=== PATIENT | male | born 1985 | race African-American/Black ===

== ENCOUNTER 2020-07-12 10:30 | Inpatient (IN) | payer OTHER ==
[~2020-07-12] VITALS: Ht 180.3 cm; Wt 117.4 kg
[2020-07-12 11:26] LABS: Eosinophils # (auto) 0 10 ^3/uL (0-0.8); Eosinophils % (auto) 0.3 % (0.0-7.0); Hemoglobin 13.5 g/dL (13.5-17.5); Lymphocytes # (auto) 0.7 10 ^3/uL (0.4-5.4); White Blood Cell 9.5 10^3/uL (4.4-10.8)
[2020-07-12 11:28] LABS: Basophils # (auto) 0 10 ^3/uL (0-0.2); Basophils % (auto) 0.4 % (0.0-2.0); Hematocrit 41.7 % (41.0-53.0); Lymphocytes % (auto) 7.2 % (10.0-50.0); Mean Corpuscular Hemoglobin 23.6 pg (28.0-32.0); Mean Corpuscular Hgb Conc. 32.3 g/dL (32.0-36.0); Mean Corpuscular Volume 73.1 fL (80.0-100.0); Monocytes # (auto) 0.8 10 ^3/uL (0-1.3); Monocytes % (auto) 8.9 % (0.0-12.0); Neutrophils # (auto) 7.9 10 ^3/uL (1.6-8.6); Neutrophils % (auto) 83.2 % (37.0-80.0); Nucleated Red Blood Cells % 0.1 %; Red Cell Distribution Width 15.8 % (11.8-14.3)
[2020-07-12 11:42] LABS: INR 1.42 (0.9-1.15); Partial Thromboplastin Time 30.4 sec (23.0-31.2)
[2020-07-12 11:45] LABS: Albumin 2.2 g/dL (3.4-5.0); BUN/Creatinine Ratio 20.3; Calcium 8.5 mg/dL (8.5-10.1); Potassium 4.7 mmol/L (3.5-5.1)
[2020-07-12 11:55] LABS: Bilirubin, Total 3.1 mg/dL (0.2-1.0); Total Protein 6.8 g/dL (6.4-8.2)
[2020-07-12] MEDS ORDERED: FUROSEMIDE 40 MG/4 ML VIAL IV ONE (12:30)
[2020-07-12] MEDS ORDERED: ENOXAPARIN SOD 100 MG/1 ML SYRINGE SC ONE (12:30)
[2020-07-12] MEDS ORDERED: IOHEXOL 350 MG/ML 100ML IJ ONE (13:01)
[2020-07-12] MEDS ORDERED: NITROGLYCERIN 0.4 MG SL TAB SL PRN (13:15)
[2020-07-12] MEDS ORDERED: PANTOPRAZOLE 40 MG TAB PO ONE (13:15)
[2020-07-12] MEDS ORDERED: cefTRIAXone 1GM/50ML D5W 50 ML IV ONE (14:00)
[2020-07-12] MEDS ORDERED: AZITHROMYCIN 250 MG TAB PO ONE (14:00)
[2020-07-12] MEDS ORDERED: POTASSIUM CHL 10 Meq TABLET PO ONE (14:00)
[2020-07-12] MEDS ORDERED: APIXABAN 5 MG TAB PO ONE (14:00)
[2020-07-12] MEDS ORDERED: FUROSEMIDE 20 MG/2 ML VIAL IV ONE (14:00)
[2020-07-12 15:50] LABS: Hepatitis A Ab IgM Negative; Hepatitis B Surface Antigen Negative (Negative); Hepatitis C Antibody Negative (Negative)
[2020-07-12 15:51] LABS: Hepatitis B Core IgM Negative
[2020-07-12] MEDS: POTASSIUM CHL 10 Meq TABLET PO SCH (21:30)
[2020-07-12] MEDS: APIXABAN 5 MG TAB PO SCH (21:30)
[2020-07-12] MEDS: FUROSEMIDE 20 MG/2 ML VIAL IV SCH (21:30)
[2020-07-12] MEDS ORDERED: ACETAMINOPHEN 500 MG TAB PO ONE (22:30)
[2020-07-12] MEDS: HYDROcodone-ACET 10/325MG TAB PO PRN (22:34)
[2020-07-13] MEDS: HYDROcodone-ACET 10/325MG TAB PO PRN ×2 (07:11→16:57)
[2020-07-13] MEDS ORDERED: REMDESIVIR 200 MG in NS 210ml LOADING DOSE ADULT IV ONE (08:00)
[2020-07-13 08:16] LABS: Calcium 8.8 mg/dL (8.5-10.1); Potassium 4.7 mmol/L (3.5-5.1)
[2020-07-13 08:21] LABS: BUN/Creatinine Ratio 18.3
[2020-07-13] MEDS ORDERED: REMDESIVIR PER PHARMACY IV SCH (10:00)
[2020-07-13] MEDS: CHOLECALCIFEROL (VITD3) 2,000 UNIT CAP/TAB PO SCH (10:20)
[2020-07-13] MEDS: ZINC SULFATE 220mg CAP or TAB PO SCH (10:20)
[2020-07-13] MEDS: APIXABAN 5 MG TAB PO SCH ×2 (10:20→22:07)
[2020-07-13] MEDS: cefTRIAXone 1GM/50ML D5W 50 ML IV SCH (10:20)
[2020-07-13] MEDS: POTASSIUM CHL 10 Meq TABLET PO SCH ×2 (10:20→22:07)
[2020-07-13] MEDS: ASCORBIC ACID 500 MG TAB PO SCH ×2 (10:20→22:07)
[2020-07-13] MEDS: FUROSEMIDE 20 MG/2 ML VIAL IV SCH (10:23)
[2020-07-13] MEDS: AZITHROMYCIN 250 MG TAB PO SCH (12:08)
[2020-07-13] MEDS ORDERED: OPTISON 3ml Vial for INJ IV ONE (13:15)
[2020-07-13] MEDS ORDERED: APIXABAN 5 MG TAB PO SCH (22:00)
[2020-07-13 23:00] VITALS: BP 134/95
[2020-07-14 05:00] VITALS: BP 118/89
[2020-07-14] MEDS ORDERED: PNEUMOCOCCAL VACC POLYS 25 MCG/0.5 ML VIAL SUBCUT ONE (05:45)
[2020-07-14 06:43] LABS: Basophils # (auto) 0 10 ^3/uL (0-0.2); Eosinophils # (auto) 0 10 ^3/uL (0-0.8); Hemoglobin 12.1 g/dL (13.5-17.5)
[2020-07-14 06:45] LABS: Basophils % (auto) 0.3 % (0.0-2.0); Lymphocytes # (auto) 1.1 10 ^3/uL (0.4-5.4); Lymphocytes % (auto) 9.4 % (10.0-50.0); Mean Corpuscular Hemoglobin 23.1 pg (28.0-32.0); Mean Corpuscular Hgb Conc. 31.7 g/dL (32.0-36.0); Mean Corpuscular Volume 72.7 fL (80.0-100.0); Monocytes # (auto) 1.5 10 ^3/uL (0-1.3); Monocytes % (auto) 12.9 % (0.0-12.0); Neutrophils # (auto) 8.8 10 ^3/uL (1.6-8.6); Neutrophils % (auto) 77.4 % (37.0-80.0); Nucleated Red Blood Cells % 0.5 %; Red Blood Cells 5.23 10^6/uL (4.5-5.90); Red Cell Distribution Width 15.8 % (11.8-14.3); White Blood Cell 11.3 10^3/uL (4.4-10.8)
[2020-07-14 07:06] LABS: Calcium 8.6 mg/dL (8.5-10.1); Potassium 5.1 mmol/L (3.5-5.1)
[2020-07-14 07:10] LABS: BUN/Creatinine Ratio 18.8; Bilirubin, Total 3.9 mg/dL (0.2-1.0); Total Protein 6.8 g/dL (6.4-8.2)
[2020-07-14 09:00] VITALS: BP 124/90
[2020-07-14] MEDS ORDERED: REMDESIVIR PER PHARMACY IV SCH (10:00)
[2020-07-14] MEDS: ZINC SULFATE 220mg CAP or TAB PO SCH (10:10)
[2020-07-14] MEDS: CHOLECALCIFEROL (VITD3) 2,000 UNIT CAP/TAB PO SCH (10:10)
[2020-07-14] MEDS: APIXABAN 5 MG TAB PO SCH ×2 (10:10→21:30)
[2020-07-14] MEDS: AZITHROMYCIN 250 MG TAB PO SCH (10:10)
[2020-07-14] MEDS: ASCORBIC ACID 500 MG TAB PO SCH ×2 (10:11→21:30)
[2020-07-14] MEDS: cefTRIAXone 1GM/50ML D5W 50 ML IV SCH (10:14)
[2020-07-14] MEDS: PANTOPRAZOLE 40 MG TAB PO SCH (10:15)
[2020-07-14] MEDS: POTASSIUM CHL 10 Meq TABLET PO SCH ×2 (10:15→21:28)
[2020-07-14] MEDS: FUROSEMIDE 20 MG/2 ML VIAL IV SCH (10:18)
[2020-07-14] MEDS: HYDROcodone-ACET 10/325MG TAB PO PRN ×2 (10:37→21:32)
[2020-07-14 12:48] VITALS: BP 125/87
[2020-07-14 17:00] VITALS: BP 110/74
[2020-07-14] MEDS ORDERED: REMDESIVIR 100 MG in SODIUM CHL 0.9% 250 ML IV SCH (17:00)
[2020-07-14 22:32] VITALS: BP 145/94
[2020-07-15 03:56] LABS: Urine Bacteria FEW /hpf (None Seen); Urine Blood 3+ /uL (Negative); Urine Hyaline Cast MANY /lpf (0 - 2); Urine Mucus FEW (None Seen); Urine Specific Gravity 1.024 (1.001-1.035); Urine Sperm PRESENT /hpf (None Seen); Urine WBC 4 /hpf (0 - 3)
[2020-07-15 06:06] VITALS: BP 103/82
[2020-07-15 09:00] VITALS: BP 119/83
[2020-07-15] MEDS: ZINC SULFATE 220mg CAP or TAB PO SCH (11:16)
[2020-07-15] MEDS: LISINOPRIL 5 MG TAB PO SCH (11:17)
[2020-07-15] MEDS: POTASSIUM CHL 10 Meq TABLET PO SCH ×2 (11:18→22:00)
[2020-07-15] MEDS: PANTOPRAZOLE 40 MG TAB PO SCH (11:18)
[2020-07-15] MEDS: APIXABAN 5 MG TAB PO SCH ×2 (11:18→21:46)
[2020-07-15 11:19] LABS: Potassium 5.5 mmol/L (3.5-5.1)
[2020-07-15] MEDS: CARVEDILOL 3.125 MG TAB PO SCH (11:19)
[2020-07-15] MEDS: ASCORBIC ACID 500 MG TAB PO SCH ×2 (11:19→21:46)
[2020-07-15] MEDS: AZITHROMYCIN 250 MG TAB PO SCH (11:20)
[2020-07-15] MEDS: HYDROcodone-ACET 10/325MG TAB PO PRN ×2 (11:20→21:45)
[2020-07-15] MEDS: CHOLECALCIFEROL (VITD3) 2,000 UNIT CAP/TAB PO SCH (11:20)
[2020-07-15] MEDS: cefTRIAXone 1GM/50ML D5W 50 ML IV SCH (11:21)
[2020-07-15] MEDS: FUROSEMIDE 20 MG/2 ML VIAL IV SCH (11:21)
[2020-07-15 11:25] LABS: Albumin 1.9 g/dL (3.4-5.0); Bilirubin, Total 3.9 mg/dL (0.2-1.0); Total Protein 6.3 g/dL (6.4-8.2)
[2020-07-15 13:00] VITALS: BP 109/78
[2020-07-15 16:34] VITALS: BP 97/73
[2020-07-15 20:57] VITALS: BP 107/62
[2020-07-16 05:00] VITALS: BP 100/71
[2020-07-16 08:00] VITALS: BP 115/76
[2020-07-16 08:01] LABS: Potassium 4.7 mmol/L (3.5-5.1)
[2020-07-16 08:11] LABS: Albumin 1.8 g/dL (3.4-5.0); BUN/Creatinine Ratio 30.6; Bilirubin, Total 3.6 mg/dL (0.2-1.0); Calcium 7.9 mg/dL (8.5-10.1); Total Protein 6.4 g/dL (6.4-8.2)
[2020-07-16] MEDS: LISINOPRIL 5 MG TAB PO SCH (10:00)
[2020-07-16] MEDS: APIXABAN 5 MG TAB PO SCH ×2 (10:24→21:51)
[2020-07-16] MEDS: ZINC SULFATE 220mg CAP or TAB PO SCH (10:24)
[2020-07-16] MEDS: cefTRIAXone 1GM/50ML D5W 50 ML IV SCH (10:24)
[2020-07-16] MEDS: AZITHROMYCIN 250 MG TAB PO SCH (10:25)
[2020-07-16] MEDS: ASCORBIC ACID 500 MG TAB PO SCH ×2 (10:25→21:51)
[2020-07-16] MEDS: PANTOPRAZOLE 40 MG TAB PO SCH (10:25)
[2020-07-16] MEDS: CHOLECALCIFEROL (VITD3) 2,000 UNIT CAP/TAB PO SCH (10:25)
[2020-07-16] MEDS: FUROSEMIDE 20 MG/2 ML VIAL IV SCH (10:50)
[2020-07-16] MEDS: POTASSIUM CHL 10 Meq TABLET PO SCH ×2 (10:50→21:51)
[2020-07-16] MEDS: CARVEDILOL 3.125 MG TAB PO SCH (10:51)
[2020-07-16 12:00] VITALS: BP 105/63
[2020-07-16] MEDS: HYDROcodone-ACET 10/325MG TAB PO PRN ×2 (13:15→19:38)
[2020-07-16 17:00] VITALS: BP 108/76
[2020-07-16 22:29] VITALS: BP 123/51
[2020-07-17] MEDS: HYDROcodone-ACET 10/325MG TAB PO PRN ×3 (00:16→20:19)
[2020-07-17 05:23] VITALS: BP 102/75
[2020-07-17 08:15] LABS: Potassium 5.3 mmol/L (3.5-5.1)
[2020-07-17 08:22] LABS: Albumin 1.9 g/dL (3.4-5.0); BUN/Creatinine Ratio 28.9; Bilirubin, Total 3.8 mg/dL (0.2-1.0); Calcium 8.3 mg/dL (8.5-10.1); Total Protein 6.8 g/dL (6.4-8.2)
[2020-07-17 09:00] VITALS: BP 123/67
[2020-07-17] MEDS: ZINC SULFATE 220mg CAP or TAB PO SCH (09:27)
[2020-07-17] MEDS: AZITHROMYCIN 250 MG TAB PO SCH (09:28)
[2020-07-17] MEDS: APIXABAN 5 MG TAB PO SCH ×2 (09:28→21:43)
[2020-07-17] MEDS: ASCORBIC ACID 500 MG TAB PO SCH ×2 (09:28→21:42)
[2020-07-17] MEDS: PANTOPRAZOLE 40 MG TAB PO SCH (09:29)
[2020-07-17] MEDS: CHOLECALCIFEROL (VITD3) 2,000 UNIT CAP/TAB PO SCH (09:29)
[2020-07-17] MEDS: cefTRIAXone 1GM/50ML D5W 50 ML IV SCH (09:31)
[2020-07-17] MEDS: LISINOPRIL 5 MG TAB PO SCH (09:33)
[2020-07-17] MEDS: FUROSEMIDE 20 MG/2 ML VIAL IV SCH (09:34)
[2020-07-17] MEDS: CARVEDILOL 3.125 MG TAB PO SCH (09:34)
[2020-07-17] MEDS: POTASSIUM CHL 10 Meq TABLET PO SCH (09:35)
[2020-07-17 13:00] VITALS: BP 119/71
[2020-07-17 17:00] VITALS: BP 113/76
[2020-07-17 22:00] VITALS: BP 99/72
[2020-07-18] MEDS: HYDROcodone-ACET 10/325MG TAB PO PRN ×5 (03:29→21:13)
[2020-07-18 05:00] VITALS: BP 100/59
[2020-07-18 08:51] LABS: BUN/Creatinine Ratio 32.4; Calcium 8.2 mg/dL (8.5-10.1); Potassium 5.4 mmol/L (3.5-5.1)
[2020-07-18 09:00] VITALS: BP 107/81
[2020-07-18] MEDS: ASCORBIC ACID 500 MG TAB PO SCH ×2 (10:09→21:13)
[2020-07-18] MEDS: CARVEDILOL 3.125 MG TAB PO SCH (10:09)
[2020-07-18] MEDS: LISINOPRIL 5 MG TAB PO SCH (10:11)
[2020-07-18] MEDS: PANTOPRAZOLE 40 MG TAB PO SCH (10:12)
[2020-07-18] MEDS: APIXABAN 5 MG TAB PO SCH ×2 (10:12→21:13)
[2020-07-18] MEDS: CHOLECALCIFEROL (VITD3) 2,000 UNIT CAP/TAB PO SCH (10:13)
[2020-07-18] MEDS: ZINC SULFATE 220mg CAP or TAB PO SCH (10:13)
[2020-07-18] MEDS: AZITHROMYCIN 250 MG TAB PO SCH (10:13)
[2020-07-18] MEDS: cefTRIAXone 1GM/50ML D5W 50 ML IV SCH (10:13)
[2020-07-18] MEDS: FUROSEMIDE 20 MG/2 ML VIAL IV SCH (10:14)
[2020-07-18 12:25] LABS: Albumin 1.8 g/dL (3.4-5.0)
[2020-07-18 12:31] LABS: Bilirubin, Direct 2.8 mg/dL (0-0.2); Bilirubin, Total 3.3 mg/dL (0.2-1.0); Total Protein 6.6 g/dL (6.4-8.2)
[2020-07-18 13:00] VITALS: BP 100/68
[2020-07-18] MEDS ORDERED: SODIUM ZIRCONIUM CYCL 10 GM PAK PO ONE (16:45)
[2020-07-18 17:00] VITALS: BP 93/63
[2020-07-18 22:00] VITALS: BP 123/50
[2020-07-19 05:00] VITALS: BP 115/67
[2020-07-19] MEDS: HYDROcodone-ACET 10/325MG TAB PO PRN ×2 (05:41→22:14)
[2020-07-19 07:41] LABS: Potassium 4.9 mmol/L (3.5-5.1)
[2020-07-19 07:51] LABS: BUN/Creatinine Ratio 37.1; Calcium 7.9 mg/dL (8.5-10.1)
[2020-07-19 08:00] VITALS: BP 108/76
[2020-07-19] MEDS ORDERED: SODIUM ZIRCONIUM CYCL 10 GM PAK PO ONE (10:00)
[2020-07-19] MEDS ORDERED: APIXABAN 5 MG TAB PO SCH (10:00)
[2020-07-19] MEDS: ASCORBIC ACID 500 MG TAB PO SCH ×2 (10:00→22:15)
[2020-07-19 12:00] VITALS: BP 104/64
[2020-07-19] MEDS: ZINC SULFATE 220mg CAP or TAB PO SCH (15:59)
[2020-07-19] MEDS: cefTRIAXone 1GM/50ML D5W 50 ML IV SCH (15:59)
[2020-07-19] MEDS: FUROSEMIDE 20 MG/2 ML VIAL IV SCH (15:59)
[2020-07-19] MEDS: APIXABAN 5 MG TAB PO SCH ×2 (16:00→22:15)
[2020-07-19] MEDS: CARVEDILOL 3.125 MG TAB PO SCH (16:00)
[2020-07-19] MEDS: CHOLECALCIFEROL (VITD3) 2,000 UNIT CAP/TAB PO SCH (16:01)
[2020-07-19] MEDS: PANTOPRAZOLE 40 MG TAB PO SCH (16:01)
[2020-07-19] MEDS: AZITHROMYCIN 250 MG TAB PO SCH (16:01)
[2020-07-19 17:00] VITALS: BP 108/63
[2020-07-19 22:01] VITALS: BP 98/73
[2020-07-20] MEDS: HYDROcodone-ACET 10/325MG TAB PO PRN ×2 (04:16→19:00)
[2020-07-20 05:00] VITALS: BP 104/70
[2020-07-20] MEDS ORDERED: MIDAZOLAM HCL 2MG/2ML 2ml VIAL (1mg/ml) ONE (07:33)
[2020-07-20] MEDS ORDERED: oxyTOCIN 10 UNIT/ML 10ML VIAL ONE (07:33)
[2020-07-20] MEDS ORDERED: MORPHINE SULF PF 2 MG/2 ML SYRG ONE (07:33)
[2020-07-20] MEDS ORDERED: SODIUM CHLORIDE LOCK 10 ML ONE (07:33)
[2020-07-20] MEDS ORDERED: EPINEPHrine HCL 1 MG/1 ML AMP ONE (07:33)
[2020-07-20] MEDS ORDERED: BUPIVACAINE/DEXTROSE MPF 0.75% 2 ML AMP IT ONE (07:33)
[2020-07-20] MEDS ORDERED: ONDANSETRON HCL 4 MG/2 ML VIAL ONE (07:33)
[2020-07-20] MEDS ORDERED: fentaNYL CITRATE 100 MCG/2 ML VL ONE (07:33)
[2020-07-20 08:00] VITALS: BP 101/62
[2020-07-20 09:06] LABS: Albumin 1.8 g/dL (3.4-5.0); Calcium 7.8 mg/dL (8.5-10.1); Potassium 4.7 mmol/L (3.5-5.1)
[2020-07-20 09:09] LABS: Bilirubin, Total 2.6 mg/dL (0.2-1.0)
[2020-07-20] MEDS: cefTRIAXone 1GM/50ML D5W 50 ML IV SCH (12:15)
[2020-07-20] MEDS: PANTOPRAZOLE 40 MG TAB PO SCH (12:15)
[2020-07-20] MEDS: ZINC SULFATE 220mg CAP or TAB PO SCH (12:15)
[2020-07-20] MEDS: AZITHROMYCIN 250 MG TAB PO SCH (12:15)
[2020-07-20] MEDS: CARVEDILOL 3.125 MG TAB PO SCH (12:15)
[2020-07-20] MEDS: FUROSEMIDE 20 MG/2 ML VIAL IV SCH (12:15)
[2020-07-20] MEDS: APIXABAN 5 MG TAB PO SCH ×2 (12:15→22:22)
[2020-07-20] MEDS: ASCORBIC ACID 500 MG TAB PO SCH ×2 (12:15→22:22)
[2020-07-20] MEDS: CHOLECALCIFEROL (VITD3) 2,000 UNIT CAP/TAB PO SCH (12:15)
[2020-07-20 14:05] VITALS: BP 116/69
[2020-07-20] MEDS ORDERED: REMDESIVIR 100 MG in SODIUM CHL 0.9% 250 ML IV SCH (15:00)
[2020-07-20 17:00] VITALS: BP 94/67
[2020-07-20 22:00] VITALS: BP 101/67
[2020-07-21] MEDS: HYDROcodone-ACET 10/325MG TAB PO PRN ×2 (01:26→12:59)
[2020-07-21 05:00] VITALS: BP 93/54
[2020-07-21 07:11] LABS: Albumin 1.8 g/dL (3.4-5.0); BUN/Creatinine Ratio 34.2; Bilirubin, Total 2.9 mg/dL (0.2-1.0); Calcium 8.2 mg/dL (8.5-10.1); Total Protein 6.4 g/dL (6.4-8.2)
[2020-07-21] MEDS: AZITHROMYCIN 250 MG TAB PO SCH (10:50)
[2020-07-21] MEDS: PANTOPRAZOLE 40 MG TAB PO SCH (10:50)
[2020-07-21] MEDS: CARVEDILOL 3.125 MG TAB PO SCH (10:50)
[2020-07-21] MEDS: ASCORBIC ACID 500 MG TAB PO SCH ×2 (10:50→21:17)
[2020-07-21] MEDS: FUROSEMIDE 20 MG/2 ML VIAL IV SCH (10:50)
[2020-07-21] MEDS: APIXABAN 5 MG TAB PO SCH ×2 (10:50→21:18)
[2020-07-21] MEDS: CHOLECALCIFEROL (VITD3) 2,000 UNIT CAP/TAB PO SCH (10:50)
[2020-07-21] MEDS: cefTRIAXone 1GM/50ML D5W 50 ML IV SCH (10:50)
[2020-07-21] MEDS: ZINC SULFATE 220mg CAP or TAB PO SCH (10:50)
[2020-07-21 13:00] VITALS: BP 108/68
[2020-07-21 17:00] VITALS: BP 103/63
[2020-07-21 21:00] VITALS: BP 116/68
[2020-07-22 00:30] VITALS: BP 102/72
[2020-07-22] MEDS: HYDROcodone-ACET 10/325MG TAB PO PRN ×4 (00:45→22:52)
[2020-07-22 05:00] VITALS: BP 97/71
[2020-07-22 09:00] VITALS: BP 114/66
[2020-07-22] MEDS: APIXABAN 5 MG TAB PO SCH ×2 (10:00→21:17)
[2020-07-22] MEDS: CHOLECALCIFEROL (VITD3) 2,000 UNIT CAP/TAB PO SCH ×2 (10:51→11:05)
[2020-07-22] MEDS: cefTRIAXone 1GM/50ML D5W 50 ML IV SCH (11:04)
[2020-07-22] MEDS: ZINC SULFATE 220mg CAP or TAB PO SCH (11:04)
[2020-07-22] MEDS: PANTOPRAZOLE 40 MG TAB PO SCH (11:05)
[2020-07-22] MEDS: ASCORBIC ACID 500 MG TAB PO SCH ×2 (11:05→21:20)
[2020-07-22] MEDS: AZITHROMYCIN 250 MG TAB PO SCH (11:05)
[2020-07-22] MEDS: CARVEDILOL 3.125 MG TAB PO SCH (11:07)
[2020-07-22] MEDS: FUROSEMIDE 20 MG/2 ML VIAL IV SCH (11:08)
[2020-07-22 11:19] LABS: INR 1.9 (0.9-1.15); Partial Thromboplastin Time 44.5 sec (23.0-31.2)
[2020-07-22 12:44] VITALS: BP 148/75
[2020-07-22] MEDS ORDERED: HYDROmorphone HCL 2 MG/ML VL IV ONE (12:45)
[2020-07-22 17:00] VITALS: BP 101/75
[2020-07-22 22:00] VITALS: BP 101/74
[2020-07-23 00:15] VITALS: BP 105/70
[2020-07-23 05:00] VITALS: BP 101/75
[2020-07-23 06:39] LABS: Albumin 1.7 g/dL (3.4-5.0); Calcium 8.2 mg/dL (8.5-10.1); Potassium 4.8 mmol/L (3.5-5.1)
[2020-07-23 06:45] LABS: Total Protein 6.3 g/dL (6.4-8.2)
[2020-07-23 06:54] LABS: Basophils # (auto) 0.1 10 ^3/uL (0-0.2); Eosinophils # (auto) 0.1 10 ^3/uL (0-0.8); Monocytes # (auto) 0.7 10 ^3/uL (0-1.3)
[2020-07-23 06:56] LABS: Basophils % (auto) 0.7 % (0.0-2.0); Eosinophils % (auto) 0.9 % (0.0-7.0); Hemoglobin 11.7 g/dL (13.5-17.5); Lymphocytes # (auto) 1.2 10 ^3/uL (0.4-5.4); Lymphocytes % (auto) 14.3 % (10.0-50.0); Mean Corpuscular Hgb Conc. 32.4 g/dL (32.0-36.0); Mean Corpuscular Volume 70.9 fL (80.0-100.0); Monocytes % (auto) 8.4 % (0.0-12.0); Neutrophils # (auto) 6.3 10 ^3/uL (1.6-8.6); Neutrophils % (auto) 75.7 % (37.0-80.0); Nucleated Red Blood Cells % 2.3 %; Red Blood Cells 5.08 10^6/uL (4.5-5.90); White Blood Cell 8.3 10^3/uL (4.4-10.8)
[2020-07-23 09:00] VITALS: BP 107/75
[2020-07-23] MEDS: ASCORBIC ACID 500 MG TAB PO SCH ×2 (10:17→21:34)
[2020-07-23] MEDS: cefTRIAXone 1GM/50ML D5W 50 ML IV SCH (10:17)
[2020-07-23] MEDS: CHOLECALCIFEROL (VITD3) 2,000 UNIT CAP/TAB PO SCH (10:17)
[2020-07-23] MEDS: ZINC SULFATE 220mg CAP or TAB PO SCH (10:17)
[2020-07-23] MEDS: AZITHROMYCIN 250 MG TAB PO SCH (10:17)
[2020-07-23] MEDS: PANTOPRAZOLE 40 MG TAB PO SCH (10:17)
[2020-07-23] MEDS: CARVEDILOL 3.125 MG TAB PO SCH (10:18)
[2020-07-23] MEDS: FUROSEMIDE 20 MG/2 ML VIAL IV SCH (10:18)
[2020-07-23] MEDS: HYDROcodone-ACET 10/325MG TAB PO PRN (11:32)
[2020-07-23 13:00] VITALS: BP 108/77
[2020-07-23] MEDS: PROMETHAZINE W/CODEINE 5 ML ORAL SYRUP PO PRN (16:14)
[2020-07-23 17:00] VITALS: BP 103/56
[2020-07-23 20:00] VITALS: BP 100/72
[2020-07-24 07:20] LABS: Basophils # (auto) 0.1 10 ^3/uL (0-0.2)
[2020-07-24 07:23] LABS: Eosinophils # (auto) 0 10 ^3/uL (0-0.8); Eosinophils % (auto) 0.5 % (0.0-7.0); Hematocrit 35.6 % (41.0-53.0); Hemoglobin 11.3 g/dL (13.5-17.5); Lymphocytes # (auto) 1.2 10 ^3/uL (0.4-5.4); Lymphocytes % (auto) 13.3 % (10.0-50.0); Mean Corpuscular Hemoglobin 22.9 pg (28.0-32.0); Mean Corpuscular Hgb Conc. 31.7 g/dL (32.0-36.0); Mean Corpuscular Volume 72.1 fL (80.0-100.0); Monocytes # (auto) 0.8 10 ^3/uL (0-1.3); Monocytes % (auto) 8.7 % (0.0-12.0); Neutrophils # (auto) 7.1 10 ^3/uL (1.6-8.6); Neutrophils % (auto) 76.5 % (37.0-80.0); Nucleated Red Blood Cells % 0.9 %; Red Blood Cells 4.95 10^6/uL (4.5-5.90); White Blood Cell 9.3 10^3/uL (4.4-10.8)
[2020-07-24 08:04] LABS: INR 1.48 (0.9-1.15); Partial Thromboplastin Time 36.2 sec (23.0-31.2)
[2020-07-24 09:00] VITALS: BP 103/66
[2020-07-24] MEDS: cefTRIAXone 1GM/50ML D5W 50 ML IV SCH (09:55)
[2020-07-24] MEDS: FUROSEMIDE 20 MG/2 ML VIAL IV SCH (09:55)
[2020-07-24] MEDS: ZINC SULFATE 220mg CAP or TAB PO SCH (09:56)
[2020-07-24] MEDS: PANTOPRAZOLE 40 MG TAB PO SCH (09:56)
[2020-07-24] MEDS: AZITHROMYCIN 250 MG TAB PO SCH (09:56)
[2020-07-24] MEDS: ASCORBIC ACID 500 MG TAB PO SCH ×2 (09:56→21:29)
[2020-07-24] MEDS: CARVEDILOL 3.125 MG TAB PO SCH (09:56)
[2020-07-24] MEDS: CHOLECALCIFEROL (VITD3) 2,000 UNIT CAP/TAB PO SCH (09:57)
[2020-07-24 13:00] VITALS: BP 101/66
[2020-07-24] MEDS: PROMETHAZINE W/CODEINE 5 ML ORAL SYRUP PO PRN (13:21)
[2020-07-24] MEDS: HYDROcodone-ACET 10/325MG TAB PO PRN (13:21)
[2020-07-24 17:00] VITALS: BP 101/69
[2020-07-24 20:00] VITALS: BP 102/65
[2020-07-24 21:48] VITALS: BP 102/65
[2020-07-25 05:16] VITALS: BP 114/70
[2020-07-25] MEDS: FUROSEMIDE 20 MG/2 ML VIAL IV SCH (08:34)
[2020-07-25] MEDS: cefTRIAXone 1GM/50ML D5W 50 ML IV SCH (08:35)
[2020-07-25] MEDS: PANTOPRAZOLE 40 MG TAB PO SCH (08:35)
[2020-07-25] MEDS: ZINC SULFATE 220mg CAP or TAB PO SCH (08:35)
[2020-07-25] MEDS: CARVEDILOL 3.125 MG TAB PO SCH (08:35)
[2020-07-25] MEDS: AZITHROMYCIN 250 MG TAB PO SCH (08:36)
[2020-07-25] MEDS: ASCORBIC ACID 500 MG TAB PO SCH ×2 (08:36→21:06)
[2020-07-25] MEDS: HYDROcodone-ACET 10/325MG TAB PO PRN (08:36)
[2020-07-25] MEDS: CHOLECALCIFEROL (VITD3) 2,000 UNIT CAP/TAB PO SCH (08:36)
[2020-07-25 09:00] VITALS: BP 101/61
[2020-07-25] MEDS: PROMETHAZINE W/CODEINE 5 ML ORAL SYRUP PO PRN ×3 (09:17→22:39)
[2020-07-25 13:15] VITALS: BP 94/60
[2020-07-25 16:51] VITALS: BP 106/67
[2020-07-25 20:00] VITALS: BP 101/71
[2020-07-25 22:00] VITALS: BP 101/71
[2020-07-26] MEDS: HYDROcodone-ACET 10/325MG TAB PO PRN ×4 (00:23→21:59)
[2020-07-26 08:36] VITALS: BP 112/75
[2020-07-26] MEDS: FUROSEMIDE 20 MG/2 ML VIAL IV SCH (09:17)
[2020-07-26] MEDS: PANTOPRAZOLE 40 MG TAB PO SCH (09:17)
[2020-07-26] MEDS: cefTRIAXone 1GM/50ML D5W 50 ML IV SCH (09:17)
[2020-07-26] MEDS: CARVEDILOL 3.125 MG TAB PO SCH (09:17)
[2020-07-26] MEDS: ZINC SULFATE 220mg CAP or TAB PO SCH (09:17)
[2020-07-26] MEDS: CHOLECALCIFEROL (VITD3) 2,000 UNIT CAP/TAB PO SCH (09:18)
[2020-07-26] MEDS: ASCORBIC ACID 500 MG TAB PO SCH ×2 (09:18→21:58)
[2020-07-26] MEDS: AZITHROMYCIN 250 MG TAB PO SCH (09:18)
[2020-07-26 14:22] VITALS: BP 111/56
[2020-07-26 15:06] LABS: Eosinophils # (auto) 0.1 10 ^3/uL (0-0.8); Hemoglobin 11.2 g/dL (13.5-17.5); Lymphocytes # (auto) 0.9 10 ^3/uL (0.4-5.4); Neutrophils # (auto) 9.1 10 ^3/uL (1.6-8.6)
[2020-07-26 15:08] LABS: Basophils # (auto) 0.1 10 ^3/uL (0-0.2); Basophils % (auto) 0.6 % (0.0-2.0); Eosinophils % (auto) 0.4 % (0.0-7.0); Hematocrit 34.6 % (41.0-53.0); Mean Corpuscular Hemoglobin 23.6 pg (28.0-32.0); Mean Corpuscular Hgb Conc. 32.3 g/dL (32.0-36.0); Mean Corpuscular Volume 72.9 fL (80.0-100.0); Monocytes # (auto) 1.2 10 ^3/uL (0-1.3); Monocytes % (auto) 10.8 % (0.0-12.0); Neutrophils % (auto) 80.2 % (37.0-80.0); Nucleated Red Blood Cells % 0.6 %; Red Blood Cells 4.75 10^6/uL (4.5-5.90); Red Cell Distribution Width 16.5 % (11.8-14.3); White Blood Cell 11.4 10^3/uL (4.4-10.8)
[2020-07-26 15:19] LABS: INR 1.51 (0.9-1.15); Partial Thromboplastin Time 33.7 sec (23.0-31.2)
[2020-07-26 15:26] LABS: Albumin 1.5 g/dL (3.4-5.0); Calcium 7.8 mg/dL (8.5-10.1); Potassium 4.8 mmol/L (3.5-5.1)
[2020-07-26 15:31] LABS: BUN/Creatinine Ratio 26.8; Bilirubin, Total 2.6 mg/dL (0.2-1.0); Total Protein 6.3 g/dL (6.4-8.2)
[2020-07-26] MEDS ORDERED: HYDROmorphone HCL 2 MG/ML VL IV ONE (16:30)
[2020-07-26 16:50] VITALS: BP 101/63
[2020-07-26] MEDS: PROMETHAZINE W/CODEINE 5 ML ORAL SYRUP PO PRN ×2 (16:54→22:51)
[2020-07-26 22:00] VITALS: BP 98/76
[2020-07-27] MEDS: HYDROcodone-ACET 10/325MG TAB PO PRN ×2 (03:12→10:40)
[2020-07-27 05:00] VITALS: BP 105/74
[2020-07-27] MEDS: PROMETHAZINE W/CODEINE 5 ML ORAL SYRUP PO PRN ×3 (08:01→21:17)
[2020-07-27 09:00] VITALS: BP 106/73
[2020-07-27] MEDS: FUROSEMIDE 20 MG/2 ML VIAL IV SCH (10:27)
[2020-07-27] MEDS: ZINC SULFATE 220mg CAP or TAB PO SCH (10:27)
[2020-07-27] MEDS: cefTRIAXone 1GM/50ML D5W 50 ML IV SCH (10:27)
[2020-07-27] MEDS: PANTOPRAZOLE 40 MG TAB PO SCH (10:28)
[2020-07-27] MEDS: CHOLECALCIFEROL (VITD3) 2,000 UNIT CAP/TAB PO SCH (10:28)
[2020-07-27] MEDS: AZITHROMYCIN 250 MG TAB PO SCH (10:28)
[2020-07-27] MEDS: ASCORBIC ACID 500 MG TAB PO SCH ×2 (10:28→21:17)
[2020-07-27] MEDS: CARVEDILOL 3.125 MG TAB PO SCH (10:28)
[2020-07-27 13:00] VITALS: BP 102/51
[2020-07-27 17:00] VITALS: BP 102/51
[2020-07-27] MEDS ORDERED: REMDESIVIR 200 MG in NS 210ml LOADING DOSE ADULT IV ONE (18:00)
[2020-07-27] MEDS: APIXABAN 5 MG TAB PO SCH (21:17)
[2020-07-27 21:56] VITALS: BP 107/66
[2020-07-28] MEDS: PROMETHAZINE W/CODEINE 5 ML ORAL SYRUP PO PRN ×3 (04:33→22:44)
[2020-07-28 05:28] VITALS: BP 112/62
[2020-07-28 09:00] VITALS: BP 101/63
[2020-07-28] MEDS: cefTRIAXone 1GM/50ML D5W 50 ML IV SCH (10:12)
[2020-07-28] MEDS: CARVEDILOL 3.125 MG TAB PO SCH (10:12)
[2020-07-28] MEDS: FUROSEMIDE 20 MG/2 ML VIAL IV SCH (10:12)
[2020-07-28] MEDS: PANTOPRAZOLE 40 MG TAB PO SCH (10:13)
[2020-07-28] MEDS: APIXABAN 5 MG TAB PO SCH ×2 (10:13→21:45)
[2020-07-28] MEDS: ASCORBIC ACID 500 MG TAB PO SCH ×2 (10:13→21:45)
[2020-07-28] MEDS: CHOLECALCIFEROL (VITD3) 2,000 UNIT CAP/TAB PO SCH (10:15)
[2020-07-28] MEDS: ZINC SULFATE 220mg CAP or TAB PO SCH (10:16)
[2020-07-28] MEDS: AZITHROMYCIN 250 MG TAB PO SCH (10:16)
[2020-07-28 10:34] LABS: Albumin 1.4 g/dL (3.4-5.0); Calcium 8.2 mg/dL (8.5-10.1); Potassium 4.6 mmol/L (3.5-5.1)
[2020-07-28 10:37] LABS: BUN/Creatinine Ratio 27.6; Bilirubin, Total 2.6 mg/dL (0.2-1.0); Total Protein 5.9 g/dL (6.4-8.2)
[2020-07-28 13:00] VITALS: BP 100/65
[2020-07-28] MEDS: REMDESIVIR 100 MG in SODIUM CHL 0.9% 250 ML IV SCH (16:00)
[2020-07-28 17:00] VITALS: BP 99/68
[2020-07-28 21:00] VITALS: BP_SYST 104; BP_SYST 113; BP_DIAS 70; BP_DIAS 74
[2020-07-29 07:47] LABS: Albumin 1.6 g/dL (3.4-5.0); Calcium 8.4 mg/dL (8.5-10.1); Potassium 4.3 mmol/L (3.5-5.1)
[2020-07-29 07:51] LABS: BUN/Creatinine Ratio 27.4; Bilirubin, Total 2.6 mg/dL (0.2-1.0); Total Protein 6.7 g/dL (6.4-8.2)
[2020-07-29 08:00] VITALS: BP 104/67
[2020-07-29] MEDS: ASCORBIC ACID 500 MG TAB PO SCH ×2 (10:00→22:36)
[2020-07-29] MEDS: cefTRIAXone 1GM/50ML D5W 50 ML IV SCH (10:00)
[2020-07-29] MEDS: ZINC SULFATE 220mg CAP or TAB PO SCH (10:00)
[2020-07-29] MEDS: CARVEDILOL 3.125 MG TAB PO SCH (10:00)
[2020-07-29] MEDS: APIXABAN 5 MG TAB PO SCH ×2 (10:00→22:36)
[2020-07-29] MEDS: PANTOPRAZOLE 40 MG TAB PO SCH (10:00)
[2020-07-29] MEDS: AZITHROMYCIN 250 MG TAB PO SCH (10:00)
[2020-07-29] MEDS: FUROSEMIDE 20 MG/2 ML VIAL IV SCH (10:00)
[2020-07-29] MEDS: CHOLECALCIFEROL (VITD3) 2,000 UNIT CAP/TAB PO SCH (10:00)
[2020-07-29 16:00] VITALS: BP 117/79
[2020-07-29] MEDS: REMDESIVIR 100 MG in SODIUM CHL 0.9% 250 ML IV SCH (16:34)
[2020-07-29 20:00] VITALS: BP 104/67
[2020-07-29] MEDS: PROMETHAZINE W/CODEINE 5 ML ORAL SYRUP PO PRN (23:06)
[2020-07-30 07:10] LABS: Potassium 3.7 mmol/L (3.5-5.1)
[2020-07-30 07:38] LABS: Albumin 1.3 g/dL (3.4-5.0); BUN/Creatinine Ratio 28.1; Bilirubin, Total 1.7 mg/dL (0.2-1.0); Calcium 7.3 mg/dL (8.5-10.1); Total Protein 5.6 g/dL (6.4-8.2)
[2020-07-30 08:00] VITALS: BP 122/72
[2020-07-30] MEDS: PROMETHAZINE W/CODEINE 5 ML ORAL SYRUP PO PRN ×3 (08:50→23:07)
[2020-07-30] MEDS: FUROSEMIDE 20 MG/2 ML VIAL IV SCH (09:37)
[2020-07-30] MEDS: cefTRIAXone 1GM/50ML D5W 50 ML IV SCH (09:38)
[2020-07-30] MEDS: ZINC SULFATE 220mg CAP or TAB PO SCH (09:39)
[2020-07-30] MEDS: ASCORBIC ACID 500 MG TAB PO SCH ×2 (09:41→21:32)
[2020-07-30] MEDS: APIXABAN 5 MG TAB PO SCH ×2 (09:42→21:32)
[2020-07-30] MEDS: AZITHROMYCIN 250 MG TAB PO SCH (09:42)
[2020-07-30] MEDS: CHOLECALCIFEROL (VITD3) 2,000 UNIT CAP/TAB PO SCH (09:42)
[2020-07-30] MEDS: PANTOPRAZOLE 40 MG TAB PO SCH (09:42)
[2020-07-30] MEDS: CARVEDILOL 3.125 MG TAB PO SCH ×2 (09:59→16:30)
[2020-07-30] MEDS: REMDESIVIR 100 MG in SODIUM CHL 0.9% 250 ML IV SCH (16:01)
[2020-07-30 18:12] VITALS: BP 103/67
[2020-07-30 22:00] VITALS: BP 99/74
[2020-07-31] MEDS: PROMETHAZINE W/CODEINE 5 ML ORAL SYRUP PO PRN ×3 (05:15→20:35)
[2020-07-31 08:00] VITALS: BP 109/84
[2020-07-31 08:47] LABS: Albumin 1.4 g/dL (3.4-5.0); Calcium 8.1 mg/dL (8.5-10.1)
[2020-07-31 08:50] LABS: BUN/Creatinine Ratio 27.3; Bilirubin, Total 2.2 mg/dL (0.2-1.0); Total Protein 6.1 g/dL (6.4-8.2)
[2020-07-31] MEDS: ASCORBIC ACID 500 MG TAB PO SCH ×2 (09:50→21:54)
[2020-07-31] MEDS: APIXABAN 5 MG TAB PO SCH ×2 (09:50→21:53)
[2020-07-31] MEDS: CHOLECALCIFEROL (VITD3) 2,000 UNIT CAP/TAB PO SCH (09:50)
[2020-07-31] MEDS: PANTOPRAZOLE 40 MG TAB PO SCH (09:50)
[2020-07-31] MEDS: AZITHROMYCIN 250 MG TAB PO SCH (09:51)
[2020-07-31] MEDS: ZINC SULFATE 220mg CAP or TAB PO SCH (09:51)
[2020-07-31] MEDS: CARVEDILOL 3.125 MG TAB PO SCH (09:53)
[2020-07-31] MEDS: FUROSEMIDE 20 MG/2 ML VIAL IV SCH (09:53)
[2020-07-31] MEDS: cefTRIAXone 1GM/50ML D5W 50 ML IV SCH (09:56)
[2020-07-31 16:14] VITALS: BP 96/64
[2020-07-31] MEDS: REMDESIVIR 100 MG in SODIUM CHL 0.9% 250 ML IV SCH (16:52)
[2020-07-31] MEDS: HYDROcodone-ACET 10/325MG TAB PO PRN (20:35)
[2020-08-01 00:21] VITALS: BP 112/70
[2020-08-01] MEDS: PROMETHAZINE W/CODEINE 5 ML ORAL SYRUP PO PRN ×3 (02:11→21:51)
[2020-08-01 07:25] LABS: Basophils # (auto) 0.1 10 ^3/uL (0-0.2); Lymphocytes # (auto) 1.1 10 ^3/uL (0.4-5.4)
[2020-08-01 07:27] LABS: Basophils % (auto) 1.2 % (0.0-2.0); Eosinophils # (auto) 0.1 10 ^3/uL (0-0.8); Eosinophils % (auto) 0.8 % (0.0-7.0); Hematocrit 29.7 % (41.0-53.0); Hemoglobin 9.7 g/dL (13.5-17.5); Lymphocytes % (auto) 12.5 % (10.0-50.0); Mean Corpuscular Hemoglobin 23.5 pg (28.0-32.0); Mean Corpuscular Hgb Conc. 32.8 g/dL (32.0-36.0); Mean Corpuscular Volume 71.5 fL (80.0-100.0); Monocytes # (auto) 1.2 10 ^3/uL (0-1.3); Neutrophils # (auto) 6.7 10 ^3/uL (1.6-8.6); Neutrophils % (auto) 72.5 % (37.0-80.0); Red Blood Cells 4.15 10^6/uL (4.5-5.90); Red Cell Distribution Width 16.9 % (11.8-14.3); White Blood Cell 9.2 10^3/uL (4.4-10.8)
[2020-08-01 07:39] LABS: INR 1.79 (0.9-1.15); Partial Thromboplastin Time 36.9 sec (23.0-31.2)
[2020-08-01 07:58] LABS: Albumin 1.5 g/dL (3.4-5.0); BUN/Creatinine Ratio 29.2; Bilirubin, Total 2.1 mg/dL (0.2-1.0); Calcium 7.9 mg/dL (8.5-10.1); Total Protein 5.9 g/dL (6.4-8.2)
[2020-08-01 08:00] VITALS: BP 108/76
[2020-08-01] MEDS: FUROSEMIDE 20 MG/2 ML VIAL IV SCH (09:30)
[2020-08-01] MEDS: ZINC SULFATE 220mg CAP or TAB PO SCH (09:30)
[2020-08-01] MEDS: APIXABAN 5 MG TAB PO SCH ×2 (09:31→21:51)
[2020-08-01] MEDS: CARVEDILOL 3.125 MG TAB PO SCH (09:31)
[2020-08-01] MEDS: ASCORBIC ACID 500 MG TAB PO SCH ×2 (09:31→21:51)
[2020-08-01] MEDS: PANTOPRAZOLE 40 MG TAB PO SCH (09:31)
[2020-08-01] MEDS: CHOLECALCIFEROL (VITD3) 2,000 UNIT CAP/TAB PO SCH (09:32)
[2020-08-01 16:46] VITALS: BP 99/63
[2020-08-02] VITALS: BP 106/66
[2020-08-02] MEDS: HYDROcodone-ACET 10/325MG TAB PO PRN ×2 (00:30→11:33)
[2020-08-02 08:00] VITALS: BP 104/72
[2020-08-02] MEDS: PROMETHAZINE W/CODEINE 5 ML ORAL SYRUP PO PRN ×2 (08:21→15:48)
[2020-08-02] MEDS: FUROSEMIDE 20 MG/2 ML VIAL IV SCH (10:05)
[2020-08-02] MEDS: ZINC SULFATE 220mg CAP or TAB PO SCH (10:05)
[2020-08-02] MEDS: PANTOPRAZOLE 40 MG TAB PO SCH (10:06)
[2020-08-02] MEDS: CHOLECALCIFEROL (VITD3) 2,000 UNIT CAP/TAB PO SCH (10:06)
[2020-08-02] MEDS: ASCORBIC ACID 500 MG TAB PO SCH ×2 (10:06→21:41)
[2020-08-02] MEDS: APIXABAN 5 MG TAB PO SCH ×2 (10:06→21:41)
[2020-08-02] MEDS: CARVEDILOL 3.125 MG TAB PO SCH (10:06)
[2020-08-03] VITALS: BP 110/81
[2020-08-03] MEDS: PROMETHAZINE W/CODEINE 5 ML ORAL SYRUP PO PRN ×3 (00:06→16:57)
[2020-08-03 08:00] VITALS: BP 114/89
[2020-08-03] MEDS: APIXABAN 5 MG TAB PO SCH ×2 (09:57→21:17)
[2020-08-03] MEDS: PANTOPRAZOLE 40 MG TAB PO SCH (09:57)
[2020-08-03] MEDS: CARVEDILOL 3.125 MG TAB PO SCH (09:57)
[2020-08-03] MEDS: ZINC SULFATE 220mg CAP or TAB PO SCH (09:58)
[2020-08-03] MEDS: CHOLECALCIFEROL (VITD3) 2,000 UNIT CAP/TAB PO SCH (09:58)
[2020-08-03] MEDS: ASCORBIC ACID 500 MG TAB PO SCH ×2 (09:58→21:17)
[2020-08-03] MEDS: FUROSEMIDE 20 MG/2 ML VIAL IV SCH (09:58)
[2020-08-03 16:00] VITALS: BP 97/71
[2020-08-04] VITALS: BP 114/68
[2020-08-04] MEDS: PROMETHAZINE W/CODEINE 5 ML ORAL SYRUP PO PRN ×3 (01:07→18:04)
[2020-08-04 08:00] VITALS: BP 112/67
[2020-08-04] MEDS: FUROSEMIDE 20 MG/2 ML VIAL IV SCH (09:08)
[2020-08-04] MEDS: ZINC SULFATE 220mg CAP or TAB PO SCH (09:09)
[2020-08-04] MEDS: APIXABAN 5 MG TAB PO SCH ×2 (09:09→22:33)
[2020-08-04] MEDS: CARVEDILOL 3.125 MG TAB PO SCH (09:09)
[2020-08-04] MEDS: ASCORBIC ACID 500 MG TAB PO SCH ×2 (09:09→22:33)
[2020-08-04] MEDS: PANTOPRAZOLE 40 MG TAB PO SCH (09:10)
[2020-08-04] MEDS: CHOLECALCIFEROL (VITD3) 2,000 UNIT CAP/TAB PO SCH (09:10)
[2020-08-04 15:21] LABS: BUN/Creatinine Ratio 24.8; Potassium 4.4 mmol/L (3.5-5.1)
[2020-08-04 16:00] VITALS: BP 112/72
[2020-08-04] MEDS: HYDROcodone-ACET 10/325MG TAB PO PRN (17:57)
[2020-08-05] MEDS: PROMETHAZINE W/CODEINE 5 ML ORAL SYRUP PO PRN ×4 (00:04→20:17)
[2020-08-05 01:19] VITALS: BP 104/71
[2020-08-05 08:00] VITALS: BP 116/74
[2020-08-05] MEDS: ASCORBIC ACID 500 MG TAB PO SCH ×2 (09:41→22:36)
[2020-08-05] MEDS: PANTOPRAZOLE 40 MG TAB PO SCH (09:41)
[2020-08-05] MEDS: CHOLECALCIFEROL (VITD3) 2,000 UNIT CAP/TAB PO SCH (09:41)
[2020-08-05] MEDS: APIXABAN 5 MG TAB PO SCH ×2 (09:41→22:35)
[2020-08-05] MEDS: ZINC SULFATE 220mg CAP or TAB PO SCH (09:41)
[2020-08-05] MEDS: CARVEDILOL 3.125 MG TAB PO SCH ×2 (09:42→11:00)
[2020-08-05] MEDS: FUROSEMIDE 20 MG/2 ML VIAL IV SCH ×3 (09:45→22:38)
[2020-08-05 16:00] VITALS: BP 108/76
[2020-08-06 00:27] VITALS: BP 113/63
[2020-08-06] MEDS: PROMETHAZINE W/CODEINE 5 ML ORAL SYRUP PO PRN ×4 (03:41→21:36)
[2020-08-06 08:00] VITALS: BP 121/72
[2020-08-06] MEDS: FUROSEMIDE 20 MG/2 ML VIAL IV SCH ×2 (09:35→21:35)
[2020-08-06] MEDS: ZINC SULFATE 220mg CAP or TAB PO SCH (09:36)
[2020-08-06] MEDS: PANTOPRAZOLE 40 MG TAB PO SCH (09:36)
[2020-08-06] MEDS: CHOLECALCIFEROL (VITD3) 2,000 UNIT CAP/TAB PO SCH (09:36)
[2020-08-06] MEDS: CARVEDILOL 3.125 MG TAB PO SCH (09:36)
[2020-08-06] MEDS: ASCORBIC ACID 500 MG TAB PO SCH ×2 (09:36→21:35)
[2020-08-06] MEDS: APIXABAN 5 MG TAB PO SCH ×2 (09:46→21:35)
[2020-08-06 12:05] LABS: Calcium 7.9 mg/dL (8.5-10.1); Potassium 3.3 mmol/L (3.5-5.1)
[2020-08-06 12:08] LABS: BUN/Creatinine Ratio 20.9
[2020-08-06 16:00] VITALS: BP 117/69
[2020-08-06] MEDS: HYDROcodone-ACET 10/325MG TAB PO PRN (20:09)
[2020-08-07] VITALS: BP 123/67
[2020-08-07 01:25] VITALS: BP 123/67
[2020-08-07 07:18] LABS: Calcium 8.2 mg/dL (8.5-10.1); Potassium 3.6 mmol/L (3.5-5.1)
[2020-08-07 08:00] VITALS: BP 109/72
[2020-08-07] MEDS: FUROSEMIDE 20 MG/2 ML VIAL IV SCH ×2 (09:33→21:35)
[2020-08-07] MEDS: PANTOPRAZOLE 40 MG TAB PO SCH (09:34)
[2020-08-07] MEDS: APIXABAN 5 MG TAB PO SCH ×2 (09:34→21:34)
[2020-08-07] MEDS: ASCORBIC ACID 500 MG TAB PO SCH ×2 (09:34→21:34)
[2020-08-07] MEDS: ZINC SULFATE 220mg CAP or TAB PO SCH (09:34)
[2020-08-07] MEDS: POTASSIUM CHL 20 Meq TABLET PO SCH (09:34)
[2020-08-07] MEDS: CARVEDILOL 3.125 MG TAB PO SCH (09:34)
[2020-08-07] MEDS: CHOLECALCIFEROL (VITD3) 2,000 UNIT CAP/TAB PO SCH (09:35)
[2020-08-07 16:00] VITALS: BP 100/73
[2020-08-07] MEDS: HYDROcodone-ACET 10/325MG TAB PO PRN (21:34)
[2020-08-07] MEDS: PROMETHAZINE W/CODEINE 5 ML ORAL SYRUP PO PRN (21:35)
[2020-08-07 22:20] VITALS: BP 112/64
[2020-08-08] VITALS: BP 112/64
[2020-08-08] MEDS: CHOLECALCIFEROL (VITD3) 2,000 UNIT CAP/TAB PO SCH (10:00)
[2020-08-08] MEDS: POTASSIUM CHL 20 Meq TABLET PO SCH (10:00)
[2020-08-08] MEDS: PANTOPRAZOLE 40 MG TAB PO SCH (10:00)
[2020-08-08] MEDS: ASCORBIC ACID 500 MG TAB PO SCH ×2 (10:00→22:36)
[2020-08-08] MEDS: APIXABAN 5 MG TAB PO SCH ×2 (10:00→22:37)
[2020-08-08] MEDS: ZINC SULFATE 220mg CAP or TAB PO SCH (10:00)
[2020-08-08] MEDS: CARVEDILOL 3.125 MG TAB PO SCH (10:30)
[2020-08-08] MEDS: FUROSEMIDE 20 MG/2 ML VIAL IV SCH ×2 (10:30→22:47)
[2020-08-08] MEDS: PROMETHAZINE W/CODEINE 5 ML ORAL SYRUP PO PRN (18:30)
[2020-08-09] VITALS: BP 116/82
[2020-08-09] MEDS: PROMETHAZINE W/CODEINE 5 ML ORAL SYRUP PO PRN ×3 (02:12→18:50)
[2020-08-09 08:00] VITALS: BP 108/73
[2020-08-09] MEDS: FUROSEMIDE 20 MG/2 ML VIAL IV SCH ×2 (09:18→22:23)
[2020-08-09] MEDS: APIXABAN 5 MG TAB PO SCH ×2 (09:18→22:23)
[2020-08-09] MEDS: POTASSIUM CHL 20 Meq TABLET PO SCH (09:18)
[2020-08-09] MEDS: PANTOPRAZOLE 40 MG TAB PO SCH (09:18)
[2020-08-09] MEDS: ASCORBIC ACID 500 MG TAB PO SCH ×2 (09:18→22:24)
[2020-08-09] MEDS: ZINC SULFATE 220mg CAP or TAB PO SCH (09:19)
[2020-08-09] MEDS: CARVEDILOL 3.125 MG TAB PO SCH (09:19)
[2020-08-09] MEDS: CHOLECALCIFEROL (VITD3) 2,000 UNIT CAP/TAB PO SCH (11:49)
[2020-08-09 16:00] VITALS: BP 108/75
[2020-08-09 21:00] VITALS: BP 101/75
[2020-08-10] VITALS: BP 97/75
[2020-08-10] MEDS: PROMETHAZINE W/CODEINE 5 ML ORAL SYRUP PO PRN ×2 (01:00→09:56)
[2020-08-10 08:00] VITALS: BP 100/82
[2020-08-10] MEDS: FUROSEMIDE 20 MG/2 ML VIAL IV SCH (09:48)
[2020-08-10] MEDS: ASCORBIC ACID 500 MG TAB PO SCH (09:49)
[2020-08-10] MEDS: PANTOPRAZOLE 40 MG TAB PO SCH (09:49)
[2020-08-10] MEDS: CARVEDILOL 3.125 MG TAB PO SCH (09:49)
[2020-08-10] MEDS: POTASSIUM CHL 20 Meq TABLET PO SCH (09:49)
[2020-08-10] MEDS: ZINC SULFATE 220mg CAP or TAB PO SCH (09:49)
[2020-08-10] MEDS: APIXABAN 5 MG TAB PO SCH (09:49)
[2020-08-10] MEDS: CHOLECALCIFEROL (VITD3) 2,000 UNIT CAP/TAB PO SCH (09:50)
[2020-08-10] MEDS: HYDROcodone-ACET 10/325MG TAB PO PRN (09:56)
[2020-08-10 10:15] LABS: Basophils # (auto) 0.1 10 ^3/uL (0-0.2); Eosinophils # (auto) 0.1 10 ^3/uL (0-0.8); Lymphocytes # (auto) 1.2 10 ^3/uL (0.4-5.4); Monocytes # (auto) 0.9 10 ^3/uL (0-1.3); Nucleated Red Blood Cells % 0.1 %
[2020-08-10 10:18] LABS: Eosinophils % (auto) 0.7 % (0.0-7.0); Hematocrit 29.9 % (41.0-53.0); Hemoglobin 9.7 g/dL (13.5-17.5); Lymphocytes % (auto) 16.9 % (10.0-50.0); Mean Corpuscular Hemoglobin 23.1 pg (28.0-32.0); Mean Corpuscular Hgb Conc. 32.6 g/dL (32.0-36.0); Mean Corpuscular Volume 70.9 fL (80.0-100.0); Monocytes % (auto) 12.9 % (0.0-12.0); Neutrophils % (auto) 68.5 % (37.0-80.0); Red Blood Cells 4.21 10^6/uL (4.5-5.90); Red Cell Distribution Width 18.1 % (11.8-14.3); White Blood Cell 7.3 10^3/uL (4.4-10.8)
[2020-08-10 10:34] LABS: Albumin 1.7 g/dL (3.4-5.0); Calcium 8.1 mg/dL (8.5-10.1); Potassium 4.3 mmol/L (3.5-5.1)
[2020-08-10 10:37] LABS: BUN/Creatinine Ratio 23.1; Bilirubin, Total 2.3 mg/dL (0.2-1.0); Total Protein 6.4 g/dL (6.4-8.2)
[2020-08-10] MEDS ORDERED: POTA-220 PO (12:28)
[2020-08-10] MEDS ORDERED: FURO1TAB31 PO (12:28)
[2020-08-10] MEDS ORDERED: APIX5TAB PO (12:28)
[2020-08-10] MEDS ORDERED: CAR3125T PO (12:28)
[2020-08-10 16:00] VITALS: BP 113/74
== END 2020-08-10 18:00 | DRG 177 ==
LOC: EEVIPCON 10:30 → EDBD 10:30 → ER 10:30 → EEVIPCON 10:31 → OVERFLOW 10:31 → SUATTDRO 13:11 → EAST 07-13 22:50 → WEST WING 07-29 18:09
PROVIDERS: ADMIT Internal Medicine; ATTEND Internal Medicine Pulmonary Disease
PROC: XW033E5 Introduction of Remdesivir Anti-infective into Peripheral Vein, Percutaneous Approach, New Technology Group 5 (ICD-10-PCS; 2020-07-13)
PROC: 0W9930Z Drainage of Right Pleural Cavity with Drainage Device, Percutaneous Approach (ICD-10-PCS; principal; 2020-07-22)
PROC: 05HB33Z Insertion of Infusion Device into Right Basilic Vein, Percutaneous Approach (ICD-10-PCS; 2020-07-23)
PROC: B54MZZA Ultrasonography of Right Upper Extremity Veins, Guidance (ICD-10-PCS; 2020-07-23)
PROC: 0W9930Z Drainage of Right Pleural Cavity with Drainage Device, Percutaneous Approach (ICD-10-PCS; 2020-07-26)
DX: U07.1 COVID-19 (principal); I21.4 Non-ST elevation (NSTEMI) myocardial infarction; I26.99 Other pulmonary embolism without acute cor pulmonale; E43 Unspecified severe protein-calorie malnutrition; J96.01 Acute respiratory failure with hypoxia; J12.82 Pneumonia due to coronavirus disease 2019; I82.4Z2 Acute embolism and thrombosis of unspecified deep veins of left distal lower extremity; I42.0 Dilated cardiomyopathy; N17.9 Acute kidney failure, unspecified; J91.8 Pleural effusion in other conditions classified elsewhere; J98.11 Atelectasis; I50.20 Unspecified systolic (congestive) heart failure; R04.2 Hemoptysis; J93.9 Pneumothorax, unspecified; J94.2 Hemothorax; K76.89 Other specified diseases of liver; I73.9 Peripheral vascular disease, unspecified; I11.0 Hypertensive heart disease with heart failure; R60.9 Edema, unspecified; Z68.36 Body mass index [BMI] 36.0-36.9, adult
CPT/HCPCS: 36415; 71045; 71250; 71260; 74177; 76705; 80048; 80053; 80074; 80076; 81001; 82728; 83880; 84484; 85025; 85379; 85610; 85730; 87081; 87426; 93005; 93306; 93925; 93926; 93970; 97110; 97116; 97530; 99291; G0378; J0171; J0696; J2250; J2405; J2590; Q9956